=== PATIENT | female | born 1940 | race Caucasian/White ===

== ENCOUNTER 2021-01-18 01:25 | Emergency (ER) | payer OTHER, SELFPAY ==
--- NOTE | ~2021-01-18 | CT_ITS ---
EXAMINATION: CT abdomen pelvis w con EXAM DATE: 01/18/2021 03:24 INDICATION: Abdominal pain. TECHNIQUE: Spiral CT of the abdomen and pelvis was performed following intravenous injection of 100 m L Omnipaque 350. Axial, coronal and sagittal images of the abdomen and pelvis were reviewed. The do se-length product (DLP) for this examination was 582.84 mGy-cm. The exposure was tailored according to patient size (auto mA exposure control), and iterative reconstruction (ASIR) was used as additiona l dose reduction technique. There is no prior study for comparison. FINDINGS: The liver, spleen, adrenal glands and pancreas are unremarkable. Gallbladder is unremarkab le. No biliary obstruction. There is decreased attenuation to approximately 70% of the right renal volume centrally consistent with infarction which could be acute or subacute- there is no volume loss to indicate this is a chronic finding. Pelvis is poorly evaluated due to metallic artifact from ace ateral hip replacements limiting evaluation of uterus and bladder (patient could have had hysterectom y). There is no retroperitoneal or pelvic lymphadenopathy. There is extensive scattered arterial s clerotic disease. The appendix is normal. There is mild sigmoid colonic diverticulosis. There is no adjacent inflammat ory change to suggest diverticulitis. The stomach and small bowel are unremarkable. There is expecte d amount of colonic stool. No free intraperitoneal gas. The heart is normal in size. There are n o pericardial or pleural effusions. The lung bases are unremarkable. Mild to moderate thoracolumbar levoscoliosis. There are no osteoblastic or osteolytic lesions identified. 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 Reviewed, dictated and finalized at location A. IMPRESSION: Right kidney acute or subacute infarction involving majority of par enchyma.
[2021-01-18 01:29] VITALS: BP 141/105; PULSE 97; RESP 16; TEMP 36.3; O2SAT 97
[2021-01-18 01:47] LABS: Basophils Absolute Auto 0.1 K/mm3 (0.0-0.1); Basophils Percent Auto 0.5 % (0.2-1.2); Eosinophils Absolute Auto 0.2 K/mm3 (0-0.3); Eosinophils Percent Auto 2.1 % (0-4.4); Hematocrit 43.2 % (37.0-47.0); Hemoglobin 14.6 g/dL (12.0-15.0); Immature Granulocyte Absolute 0.05 K/mm3 (0.00-0.031); Immature Granulocyte Percent A 0.4 % (0-0.5); Lymphocytes Percent Auto 12.9 % (18.3-44.2); Mean Corpuscular HGB Conc 33.8 g/dl (32-36); Mean Corpuscular Hemoglobin 34.7 pg (26-34); Mean Corpuscular Volume 102.6 fl (80-100); Monocytes Absolute Auto 0.6 K/mm3 (0.1-0.6); Monocytes Percent Auto 5.4 % (2.6-8.5); Neutrophils Absolute Auto 9.1 K/mm3 (1.3-6.7); Neutrophils Percent Auto 78.7 % (45.5-73.1); Platelet Count Result 279 k/mm3 (150-375); Red Blood Count 4.21 M/mm3 (4.2-5.4); Red Cell Distribution Width 12.2 % (11.5-14.5); White Blood Count 11.6 K/mm3 (4.5-10.0)
[2021-01-18 02:22] LABS: Add Urine Microscopic? YES; Appearance Urine Clear (Clear); Bacteria Urine Trace /hpf; Bilirubin Urine Negative (Negative); Blood Urine Negative (Negative); Color Urine Straw (Yellow); Glucose Urine UA 2+ mg/dL (Negative); Ketones Urine Trace mg/dL (Negative); Leukocyte Esterase Ur 1+ LEU/UL (Negative); Mucus Urine Rare /lpf; Nitrate Urine Negative (Negative); Protein Urine 1+ mg/dL (Negative); Specific Grav Ur 1.014 (1.001-1.035); Urobilinogen Urine Negative mg/dL (<2.0)
[2021-01-18 02:37] LABS: Alanine Aminotransferase 18 U/L (4-35); Albumin Level 4.7 g/dL (3.5-5.1); Alkaline Phosphatase 86 U/L (38-126); Anion Gap 13 mmol/L (8-16); Aspartate Amino Transferase 20 U/L (14-36); Bilirubin,Total 0.4 mg/dL (0.2-1.3); Blood Urea Nitrogen 23 mg/dL (7-17); Calcium 9.6 mg/dL (8.4-10.2); Carbon Dioxide 22 mmol/L (22-30); Chloride 99 mmol/L (98-107); Estimated CRCL calculation 40 ml/min; Estimated Glomerular Filt Rate 53; Glucose 198 mg/dL (65-110); Lipase 196 U/L (23-300); Potassium 4.4 mmol/L (3.4-5.0); Sodium 134 mmol/L (137-145)
--- NOTE | 2021-01-18 02:45 | ED.ABDPAIN ---
HPI - Abdominal Pain General Chief Complaint: Abdominal Pain Stated Complaint: right flank pain Time Seen by Provider: 01/18/21 02:45 Source: patient Mode of arrival: ambulatory Limitations: no limitations History of Present Illness HPI narrative: Patient is an 80-year-old female complaining of right lower quadrant pain, 7 out of 10, sharp, nonradiating accompanied by nausea that started today. Patient denies any chest pain, shortness of breath, vomiting, diarrhea, fever, chills or urinary symptoms. Related Data Home Medications Medication Instructions Recorded Confirmed aspirin 325 mg tablet 325 mg PO DAILY 07/01/19 03/16/20 Allergies Allergy/AdvReac Type Severity Reaction Status Date / Time No Known Allergies Allergy Verified 01/18/21 03:05 Review of Systems Review of Systems: All systems reviewed & are unremarkable except as noted in HPI and below Constitutional: Constitutional: Denies body ache(s), Denies chills, Denies excessive sweating, Denies fatigue, Denies fever(s), Denies headache(s), Denies lethargy, Denies malaise, Denies weakness and Denies weight loss Eyes: Eyes: Denies blurry vision, Denies change in vision and Denies loss of vision ENT: Denies dizziness, Denies ear discharge, Denies headache(s), Denies lip swelling, Denies epistaxis, Denies nasal congestion, Denies neck pain, Denies throat swelling and Denies tongue swelling Cardiovascular: Cardiovascular: Denies chest pain, Denies chest pain at rest, Denies chest pain with activity, Denies diaphoresis, Denies rapid heart rate, Denies edema, Denies irregular heart rhythm, Denies lightheadedness, Denies palpitations, Denies dyspnea and Denies dyspnea on exertion Respiratory: Respiratory: Denies chest congestion, Denies cough, Denies hemoptysis, Denies dyspnea and Denies dyspnea on exertion Gastrointestinal: Gastrointestinal: Denies melena, Denies hematochezia, Denies diarrhea, Denies vomiting and Denies hematemesis Musculoskeletal: Musculoskeletal: Denies abnormal gait, Denies deformity, Denies joint swelling, Denies limited range of motion, Denies neck pain and Denies numbness Neurologic: Denies Abnormal speech present, Denies abnormal gait, Denies confusion, Denies dizziness, Denies headache(s), Denies focal weakness, Denies loss of vision, Denies numbness, Denies Other visual disturbances, Denies Sensory deficit (Neuro) and Denies weakness Psychiatric: Psychiatric: Denies confusion, Denies depression, Denies auditory hallucinations, Denies homicidal ideation and Denies suicidal ideation Endocrine: Endocrine: Denies cold intolerance, Denies excessive sweating, Denies fatigue, Denies heat intolerance and Denies palpitations Hematologic/Lymphatic: Hematologic/Lymphatic: Denies easy bleeding and Denies easy bruising Allergic/Immunologic: Allergic/Immunologic: Denies lip swelling, Denies throat swelling and Denies tongue swelling PMFSH Past Medical History Medical History Aortic valve insufficiency Dermatographism Dyslipidemia HTN (hypertension) Hypothyroidism Occlusion and stenosis of bilateral carotid arteries Osteoarthritis Type 2 diabetes mellitus with diabetic neuropathy, unspecified Social History Social History Social History: Years smoked: 58 Smoking status: Current every day smoker Tobacco type: cigarettes Second hand tobacco smoke exposure: Yes Alcohol intake: current Drinks per week: 4 Substance use: never Substance use type: does not use Gender identity (if verbalized by the patient): Female Exam Const: General: cooperative, healthy appearing, comfortable, no acute distress, well developed, alert and awake; No confusion Orientation/consciousness: oriented to person, oriented to place, oriented to time, patient oriented x3 and No confusion Limitations: no limitations HENMT: Head: normal
[2021-01-18 03:02] VITALS: BP 130/80; PULSE 89; RESP 18; O2SAT 94
[2021-01-18] MEDS: LACTATED RINGERS 1,000 ML 999 ML IV CONT (03:30)
[2021-01-18 04:33] VITALS: BP 126/74; PULSE 89; RESP 16; O2SAT 94
[2021-01-18 06:04] VITALS: BP 120/76; PULSE 81; RESP 16; O2SAT 91
== END 2021-01-18 06:19 | disposition home or self-care (01) ==
PROVIDERS: Emergency Provider Emergency Medicine; PCP Family Medicine
DX: N30.00 Acute cystitis without hematuria (principal); I10 Essential (primary) hypertension; E78.5 Hyperlipidemia, unspecified; E03.9 Hypothyroidism, unspecified; E11.9 Type 2 diabetes mellitus without complications; F17.210 Nicotine dependence, cigarettes, uncomplicated; Z79.82 Long term (current) use of aspirin
CPT/HCPCS: 36415; 74177; 80053; 81001; 83690; 85025; 96360; 96361; 99284; J7120; Q9967

== ENCOUNTER 2021-07-11 14:09 | Outpatient (CLI) | payer OTHER, SELFPAY ==
--- NOTE | ~2021-07-11 | US_ITS ---
EXAMINATION: US art doppler w press UE BI DATE: 07/11/2021 14:59 INDICATION: Essential/primary hypertension TECHNIQUE: Segmental pressures and plethysmographic and Doppler waveforms of the upper extremity ollie zach were obtained. COMPARISON: None. FINDINGS: Right and left brachial artery pressures of 160 mm Hg and 123 mm Hg, respectively, are discordant (no rmal difference <= 30 mmHg). The right finger:brachial systolic pressure ratio is 0.95 (normal > 0.8) . Arterial waveforms are biphasic with brisk systolic upstrokes (normal upstroke < 0.2 s) throughout the arteries of the right upper extremity. The left finger:brachial systolic pressure ratio is 0.94. Arterial waveforms are biphasic throughout. There is borderline delayed upstrokes at the left ulnar artery. IMPRESSION: 1. Discordant brachial artery pressures with the left brachial artery pressure significantly lower th an the right suggesting a stenosis proximal to the left brachial artery. There are however symmetric normal bilateral finger brachial artery indices. Reviewed, dictated and finalized at location A. R UP IMPRESSION: 1. Discordant brachial artery pressures with the left brachial artery pressure significantly lower than the right suggesting a stenosis proximal to the left b rachial artery. There are however symmetric normal bilateral finger brachial ar wang indices.
== END 2021-07-11 14:10 | disposition home or self-care (01) ==
LOC: ANHIMG 14:13
PROVIDERS: PCP Family Medicine; Visit Provider Physician Assistant
DX: I12.9 Hypertensive chronic kidney disease with stage 1 through stage 4 chronic kidney disease, or unspecified chronic kidney disease (principal); N18.9 Chronic kidney disease, unspecified; M79.89 Other specified soft tissue disorders; I77.1 Stricture of artery
CPT/HCPCS: 93923

== ENCOUNTER 2022-12-08 14:28 | Emergency (ER) | payer OTHER, SELFPAY ==
--- NOTE | ~2022-12-08 | CT_ITS ---
EXAMINATION: CT brain wo con DATE: 12/08/2022 16:47 INDICATION: Head injury. TECHNIQUE: Computed tomography (CT) of the head was performed without intravenous contrast. The mA wa s adjusted according to patient size. Iterative reconstruction technique was employed. The dose-lengt h product was 605.33 mGy-cm. COMPARISON: None FINDINGS: There are scattered areas of low attenuation in the cerebral white matter. There is no intr acranial hemorrhage, acute infarction, or abnormal intracranial mass lesion. The ventricles are armando l in size. There are likely changes of ocular lens replacement surgeries. There is mild mucosal thick ening in the ethmoid sinuses. The mastoid air cells are normal. There is a left frontal scalp lacerat ion. IMPRESSION: 1. Mild nonspecific cerebral white matter disease, which likely represents chronic small vessel ische naima disease. Reviewed, dictated and finalized at location E. IMPRESSION: 1. Mild nonspecific cerebral white matter disease, which likely represents lunchroom supervisor dakota small vessel ischemic disease.
--- NOTE | ~2022-12-08 | CT_ITS ---
EXAMINATION: CT facial & cervical spine wo DATE: 12/08/2022 16:52 INDICATION: Head injury. TECHNIQUE: Computed tomography (CT) of the maxillofacial region and cervical spine was performed with out intravenous contrast. Automated exposure control and iterative reconstruction technique were empl oyed. The dose-length product was 239.56 mGy-cm. COMPARISON: None FINDINGS: MAXILLOFACIAL CT: There is a left frontal scalp laceration. There are likely changes of ocular lens replacement surgeri es. There is rightward deviation of the nasal septum. No fracture. There is mild mucosal thickening i n the paranasal sinuses. CERVICAL SPINE CT: There is 6 degrees dextrocurvature of cervical spine. There is mild kyphosis of the inferior cervical spine. Vertebral body heights are normal. There is mildly decreased disc height at C3-C4 and C4-C5, moderately decreased disc height at C5-C6, and severely decreased disc height at C6-C7. The following disc levels are specifically discussed: C2-C3: There is no uncovertebral joint osteoarthritis. There is moderate right and severe left facet joint osteoarthritis. There is no neural foraminal stenosis. There is no central canal stenosis. C3-C4: There is mild bilateral uncovertebral joint osteoarthritis. There is severe bilateral facet nettie int osteoarthritis. There is mild right neural foraminal stenosis. There is no central canal stenosis . C4-C5: There is mild bilateral uncovertebral joint osteoarthritis. There is severe bilateral facet nettei int osteoarthritis. There is mild bilateral neural foraminal stenosis. There is no central canal sten osis. C5-C6: There is severe bilateral uncovertebral joint osteoarthritis. There is severe right and mild l eft facet joint osteoarthritis. There is moderate right and mild left neural foraminal stenosis. Ther e is mild central canal stenosis. C6-C7: There is severe bilateral uncovertebral joint osteoarthritis. There is moderate right and yudelka re left facet joint osteoarthritis. There is mild bilateral neural foraminal stenosis. There is mild central canal stenosis. C7-T1: There is no uncovertebral joint osteoarthritis. There is severe right and mild left facet join t osteoarthritis. There is mild right neural foraminal stenosis. There is no central canal stenosis. IMPRESSION: 1. No fracture. 2. Severe cervical spondylosis. Reviewed, dictated and finalized at location E.
[2022-12-08 14:30] VITALS: BP 158/52; PULSE 94; RESP 16; TEMP 36.4; O2SAT 94
[2022-12-08] MEDS: LIDOCAINE HCL 1% LOCAL INJ 10 ML VIAL (18:19)
--- NOTE | 2022-12-08 18:27 | ED.FALL ---
HPI - Fall General Chief Complaint: Fall Stated Complaint: fell Time Seen by Provider: 12/08/22 16:02 History of Present Illness HPI Narrative: 82-year-old female presented to the emergency department for evaluation after having a mechanical fall and injuring her face. Patient reports she tripped over a concrete structure while leaving her daughter's business when she fell forward struck her face. Patient denies loss conscious. Patient did receive a laceration above her left eye. Related Data Home Medications Medication Instructions Recorded Confirmed aspirin 325 mg tablet 325 mg PO DAILY 07/01/19 12/05/22 Allergies Allergy/AdvReac Type Severity Reaction Status Date / Time nitrofurantoin AdvReac Mild Diarrhea Verified 12/05/22 13:00 Review of Systems Review of Systems: All systems reviewed & are unremarkable except as noted in HPI and below PMFSH Past Medical History Medical History Aortic valve insufficiency Dermatographism Dyslipidemia HTN (hypertension) Hypothyroidism Occlusion and stenosis of bilateral carotid arteries Osteoarthritis Type 2 diabetes mellitus with diabetic neuropathy, unspecified Surgical History Surgical History History of CEA (carotid endarterectomy) left Social History Social History Social History: Years smoked: 58 Smoking status: Current every day smoker Tobacco type: cigarettes Second hand tobacco smoke exposure: Yes Alcohol intake: current Drinks per week: 4 Substance use: never Substance use type: does not use Living arrangements: with family Occupation/Education: retired Gender identity (if verbalized by the patient): Female Sexual Orientation (if Verbalized by the Patient): Straight or Heterosexual Exam Narrative: APPEARANCE: Well appearing, no pain, no distress, well-nourished. HEAD: normocephalic, atraumatic. EYES: PERRLA/EOMI, conjunctivae clear. NOSE: Normal no drainage EARS:TMS clear with good light reflex. THROAT: Pharynx clear, no exudate. NECK: Supple. No adenopathy, no masses. RESPIRATORY: Airway patent, respirations nonlabored. Clear to auscultation bilaterally, no rales, rhonchi, wheezing. CARDIOVASCULAR: Regular rate and rhythm without murmurs rubs or gallops. ABDOMINAL: Soft, nontender, nondistended, normal bowel sounds MUSCULOSKELETAL: Moves all extremities. Strength/ROM intact, No edema, No calf tenderness. NEURO: Alert. Cranial nerves II through XII intact. Good gait. Good coordination SKIN: Laceration and skin tear above left eye Course Course Emergency Course: 82-year-old female presented the ED for evaluation after having a ground-level fall resulting in a laceration and skin tear above her left eye. Laceration and skin tear were sutured as described in the procedure notes. Patient had negative head facial and cervical spine imaging. Patient was able to ambulate at her baseline. Patient and family were comfortable with the plan for discharge and close follow-up with the primary care physician and they were educated on wound care. All questions and concerns were addressed. Vital Signs Vital signs: Vital Signs Temperature 97.5 F L 12/08/22 14:30 Pulse Rate 94 12/08/22 14:30 Respiratory Rate 16 12/08/22 14:30 Blood Pressure 158/52 H 12/08/22 14:30 Pulse Oximetry 94 12/08/22 14:30 Oxygen Delivery Room Air 12/08/22 14:30 Temperature 97.5 F L 12/08/22 14:30 Pulse Rate 94 12/08/22 14:30 Respiratory Rate 16 12/08/22 14:30 Blood Pressure 158/52 H 12/08/22 14:30 Pulse Oximetry 94 12/08/22 14:30 Oxygen Delivery Room Air 12/08/22 14:30 Procedures Laceration Laceration 1: Date: 12/08/22 Time: 18:28 Site: face Side (If applicable): left Size (cm): 4 Description: tana
== END 2022-12-08 18:46 | disposition home or self-care (01) ==
PROVIDERS: Emergency Provider Emergency Medicine; PCP Family Medicine
DX: S01.81XA Laceration without foreign body of other part of head, initial encounter (principal); I10 Essential (primary) hypertension; E78.5 Hyperlipidemia, unspecified; E03.9 Hypothyroidism, unspecified; E11.9 Type 2 diabetes mellitus without complications; F17.210 Nicotine dependence, cigarettes, uncomplicated; W01.0XXA Fall on same level from slipping, tripping and stumbling without subsequent striking against object, initial encounter
CPT/HCPCS: 12013; 70450; 70486; 72125; 99284

== ENCOUNTER 2024-05-13 12:56 | Outpatient (CLI) | payer OTHER, SELFPAY ==
--- NOTE | ~2024-05-13 | XR_ITS ---
Left Shoulder Technique: AP and scapular Y views were obtained. Clinical History: Pain Findings: No fracture or dislocation is seen. Osseous alignment is anatomic. The glenohumeral and acr omioclavicular joint spaces are preserved. Soft tissues are unremarkable. Impression: Unremarkable left shoulder radiographs. Reviewed, dictated and finalized at [facility]. ANICAL HANDYMAN Impression: Unremarkable left shoulder radiographs.
== END 2024-05-13 12:57 | disposition home or self-care (01) ==
PROVIDERS: PCP Family Medicine; Visit Provider Physician Assistant
DX: M25.512 Pain in left shoulder (principal); W19.XXXA Unspecified fall, initial encounter
CPT/HCPCS: 73030

== ENCOUNTER 2024-08-17 09:46 | Outpatient (CLI) | payer OTHER, SELFPAY ==
--- NOTE | ~2024-08-17 | MR_ITS ---
EXAMINATION: MR shoulder LT wo con DATE: 08/17/2024 11:13 INDICATION: Left shoulder pain. TECHNIQUE: Magnetic resonance imaging (MRI) of the left shoulder was performed without intravenous co ntrast. Sequences included axial PD-weighted FS FSE, coronal oblique PD-weighted FS FSE and T2-weight ed FS FSE, and sagittal oblique T2-weighted FS FSE and T1-weighted FSE. COMPARISON: Left shoulder radiographs 05/13/2024 FINDINGS: Coracoacromial arch: The acromion undersurface is flat in morphology (type I). There is severe acromioclavicular joint ost eoarthritis. There is mild subacromial/subdeltoid bursitis. Rotator cuff: There is moderate supraspinatus and infraspinatus tendinopathy. Teres minor tendon is normal. There i s severe subscapularis tendinopathy. There is mild fatty atrophy of the rotator cuff muscle bellies. Biceps tendon and glenoid labrum: Biceps tendon is in bicipital groove. There is a partial tear of biceps tendon. There is degenerative tearing of the glenoid labrum. Fluid: There is a moderate-sized glenohumeral joint effusion. Bones/cartilage: There is shallow partial thickness cartilage loss of glenoid and humeral head. Tiny osteophytes are n oted. IMPRESSION: 1. Severe rotator cuff tendinopathy. 2. Mild glenohumeral joint chondrosis. 3. Severe acromioclavicular joint osteoarthritis. 4. Partial tear of biceps tendon. 5. Moderate-sized glenohumeral joint effusion. 6. Mild subacromial/subdeltoid bursitis. Reviewed, dictated and finalized at location A.
--- OUTSIDE RECORDS SUMMARY | 2024-08-17 09:49 | XMS_ITS | Referral Summary ---
Author Organization [facility] Address [address] [place] [address] Care Team Providers Care Chief Compliance Officer Name Role Phone Darren Hernández MD Primary Care Provider Allergies No known active allergies Medications glimepiride (AMARYL) 4 mg tabletIndicatio ns:type 2 diabetes mellitus Take 1 tablet (4 mg total) by mouth daily before breakfast Active metFORMIN (GLUCOPHAGE) 1,000 mg tabletIndicatio ns:type 2 diabetes mellitus Take 1 tablet (1,000 mg total) by mouth 2 (two) times a day with meals Active triamcinolone (KENALOG) 0.1 % cream Apply to affected area twice a day. 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 3 Active simvastatin (ZOCOR) 20 mg tabletIndicatio ns:hyperlipidem ia Take 1 tablet (20 mg total) by mouth nightly 3 Active HYDROcodone-devin taminophen (NORCO) 5-325 mg per tabletIndicatio ns:Pain Take 1 tablet by mouth every 6 (six) hours as needed for pain Active diphenhydrAMINE (BenadryL) 25 mg capsuleIndicati ons:leg irritation/itch ing Take 1 tablet/capsule (25 mg total) by mouth every 6 (six) hours as needed for itching Active cholecalciferol , vitamin D3, (VITAMIN D3 ORAL)Indication s:supplement Take 1 tablet by mouth daily Active aspirin 81 mg enteric coated tablet Take 1 tablet (81 mg total) by mouth daily Active amLODIPine (NORVASC) 5 mg tablet Take 1 tablet (5 mg total) by mouth daily 3 Active Contour Next Test Strips strip USE TO TEST DAILY 4 Active levothyroxine (SYNTHROID) 125 mcg tablet Take 1 tablet (125 mcg total) by mouth daily 4 Active Active Problems Problem Noted Date Diagnosed Date Encounter for surgical after care following surgery on the circulatory system 12/10/2023 Debility 10/13/2022 Assessment & Plan (10/13/2022 7:12 AM CDT): Patient was 2 person assist post op on 10/12 and before she was completely independent, did not use assistive devices or anything. She reported feeling dizzy and unsteady on her feet -PT/OT -gave fluids for orthostatics -change positions slowly Diabetes 10/11/2022 Assessment & Plan (10/13/2022 7:10 AM CDT): Hold home Amaryl and metformin. - SSI and accuchecks - Plan to resume home regimen at discharge. HTN (hypertension) 10/11/2022 Assessment & Plan (10/13/2022 7:10 AM CDT): Home regimen: amlodipine 10mg daily, lisinopril 40mg daily. -holding home lisinopril and amlodipine for borderline low pressures. 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 Upper extremity arterial studies showed proximal left subclavian artery severe stenosis or occlusion. CT with moderate stenosis. - No true symptoms of subclavian steal at this time. Will follow up as outpatient. - Right arm BP checks only Carotid arterial disease 08/28/2022 Assessment & Plan (10/13/2022 7:10 AM CDT): Patient was referred for unequal BP measurements (left lower than right side), left hand numbness, and weekly episodes of amaurosis. Carotid duplex scan shows occlusion of the right internal carotid artery and severe stenosis of the left internal carotid artery and Upper extremity arterial studies are suggestive of proximal left subclavian artery severe stenosis or occlusion. -OR 10/11 for right carotid endarterectomy with patch. - Goal SBP 110-140 - q4 VS and NV checks - Pain control. - tolerating diet, passed void trial 10/12 Resolved Problems Problem Noted Date Diagnosed Date Resolved Date Carotid artery calcification, left 10/11/2022 10/13/2022 Social History Tobacco Use Types Packs/Day Years Used Date Smoking Tobacco: Every Day Cigarettes Smokeless Tobacco: Never Tobacco Cessation:Ready to Q uit: Not Asked; Counseling Given: Not Answered AUDIT-C Answer Date Recorded Q1: How often do you have a drink containing alc ohol? Monthly or less 10/11/2022 Q2: How many drinks containi ng alcohol do you have on a typical day when you are drinking? 1 or 2 10/11/2022 Q3: How often do you have si x or more drinks on one occasion? Never 10/11/2022 Personal Safety Answer Date Recorded Have you ever been in or are you currently in a harmful physical or emotional relationship or is someone making you feel afraid or unsafe? 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 Gender Identity Not on file Sexual Orientation Not on file Last Filed Vital Signs Vital Sign Reading Time Taken Comments Blood Pressure 112/74 12/10/2023 10:19 AM CDT Pulse 79 12/10/2023 10:19 AM CDT Temperature 36.9 C (98.4 F) 10/14/2022 6:00 AM CDT Respiratory Rate 16 10/14/2022 7:42 AM CDT Oxygen Saturation 94% 12/10/2023 10:19 AM CDT Inhaled Oxygen Concentration - - Weight 64 kg (141 lb) 12/10/2023 10:19 AM CDT Height 157.5 cm (5' 2 ) 12/10/2023 10:19 AM CDT Body Mass Index 25.79 12/10/2023 10:19 AM CDT Plan of Treatment Not on file Medical Devices Implanted Type Area Toll Gate Keeper Device Identifier Shelf Expiration Date Model / Serial / Lot [employer]Spice Vascu-Guard 8x.8cm Peripheral Patch Vascular Bovine Pericardium [id number] - [id number] Implanted:Qty: 1 on 10/11/2022 by Darrius Faulkner MD at [facility] Other - see comments Left: Neck [employer] [id number] 07/14/2023 [id number] / / [id number] Explanted Type Area Toll Gate Keeper Device Identifier Shelf Expiration Date Model / Serial / Lot Integra IT [employer] Chantal [id number] Sundt 3-4mm 30cm Temporary External Loop Soft Conical Bulb [place] - [id number] Explanted:Qty: 1 on 10/11/2022 by Darrius Faulkner MD at [facility] Left: Neck [employer]a [employer] [id number] 03/27/2027 [id number] / / [id number] Procedures Procedure Name Priority Date/Time Associated Diagnosis Comments EGFR Timed 10/12/2022 7:21 AM CDT LIPID PANEL Timed 10/12/2022 7:21 AM CDT POCT HEMOGLOBIN A1C Routine 10/05/2022 1 1:15 AM CDT from Last 3 Months or Most Recently Relevant to Health Maintenance Results * (ABNORMAL) eGFR (10/12/2022 7:21 AM CDT) Pathologist [facility] eGFR 65(L) 90 - 130 mL/min/1. 73 m2 [facility] Comment: Interpretive Data Reference Interval Normal >/= 90 mL/min/1.73m2 Mildly decreased* 60 - 89 mL/min/1.73m2 Mildly to moderately decreased 45 - 59 mL/min/1.73m2 Moderately to severely decreased 30 - 44 mL/min/1.73m2 Severely decreased 15 - 29 mL/min/1.73m2 Kidney Failure < 15 mL/min/1.73m2 *Relative to young adult level Estimated glomerular filtration rate is determined by the 2020 CKD-EPI equation recommended by the National Kidney Foundation (A Unifying Approach to GFR Estimation: Recommendations of the NKF-ASK Task Force on Reassessing the Inclusion of Race in Diagnosing Kidney Disease, JASN 2020). The CKD-EPI equation should not be used for patients with unstable renal function and has not been validated in children and those over 70. Current interpretive data was last reviewed 2021. Blood 10/12/2022 7:21 AM CDT 10/12/2022 8:40 AM CDT Mery Tinoco NP LAB BLOOD ORDERABLES Final Result [facility] [place] [address] * (ABNORMAL) Lipid panel (10/12/2022 7:21 AM CDT) Cholesterol 95 30 - 199 mg/dL [facility] Comment: Interpretive Data Ages < or = 19 years Acceptable: <170 mg/dL Borderline high: 170-199 mg/dL High: >or= 200 mg/dL Ages > or = 20 years Desirable: <200 mg/dL Borderline high: 200-239 mg/dL High: >or= 240 mg/dL Literature References: 1. Expert Panel on Integrated Guidelines for Cardiovascular Health and Risk Reduction in Children and Adolescents. Pediatrics 2011;128:S213 2. NCEP Expert Panel. Circulation 2004;110:227 Current Interpretive Data was last revised on 2018. Triglycerides 114 <=149 mg/dL [facility] Comment: Interpretive Data Ages < or = 9 years Acceptable: <75 mg/dL Borderline high: 75-99 mg/dL High: >or= 100 mg/dL Ages 10 to 20 years Acceptable: <90 mg/dL Borderline high: 90-129 mg/dL High: >or= 130 mg/dL Ages > or = 20 years Desirable: <150 mg/dL Borderline high: 150-199 mg/dL High: 200-499 mg/dL Very high: >or= 499 mg/dL Literature References: 1. Expert Panel on Integrated Guidelines for Cardiovascular Health and Risk Reduction in Children and Adolescents. Pediatrics 2011;128:S213 2. NCEP Expert Panel. Circulation 2004;110:227 Current Interpretive Data was last revised on 2018. HDL 39(L) >=40 mg/dL [facility] Comment: Interpretive Data Ages < or = 19 years Acceptable: >45 mg/dL Borderline low: 40-45 mg/dL Low: <40 mg/dL Ages > or = 20 years Desirable: >or= 60 mg/dL Low: <40 mg/dL Literature References: 1. Expert Panel on Integrated Guidelines for Cardiovascular Health and Risk Reduction in Children and Adolescents. Pediatrics 2011;128:S213 2. NCEP Expert Panel. Circulation 2004;110:227 Current Interpretive Data was last revised on 2018. LDL, calculated 33 <=129 mg/dL [facility] Comment: Interpretive Data Ages < or = 19 years Acceptable: <110 mg/dL Borderline high: 110-129 mg/dL High: >or= 130 mg/dL Ages > or = 20 years Optimal: <100 mg/dL Near optimal: 100-129 mg/dL Borderline high: 130-159 mg/dL High: >160 mg/dL Literature References: 1. Expert Panel on Integrated Guidelines for Cardiovascular Health and Risk Reduction in Children and Adolescents. Pediatrics 2011;128:S213 2. NCEP Expert Panel. Circulation 2004;110:227 Current Interpretive Data was last revised on 2018. Non-HDL Cholesterol 56 mg/dL [facility] Comment: Interpretive Data Ages < or = 19 years Acceptable: <120 mg/dL Borderline high: 120-144 mg/dL High: >145 mg/dL Ages > or = 20 years When triglycerides are >200 mg/dL, Non-HDL cholesterol is a secondary target of therapy with treatment goals that are 30 mg/dL greater than the LDL cholesterol target. Literature References: 1. Expert Panel on Integrated Guidelines for Cardiovascular Health and Risk Reduction in Children and Adolescents. Pediatrics 2011;128:S213 2. NCEP Expert Panel. Circulation 2004;110:227 Current Interpretive Data was last revised on 2018. Chol/HDL ratio 2 [facility] Blood 10/12/2022 7:21 AM CDT 10/12/2022 8:40 AM CDT Darrius Faulkner MD LAB BLOOD ORDERABLES Alma l Result Performing Organization Address [facility] Co de Phone Number [facility] [place] [address] * (ABNORMAL) POCT hemoglobin A1c (10/05/2022 11:15 AM CDT) Hgb A1C, POC 6.1(H) 4.0 - 5.6 % [facility] Est Average Gluc POC 128 mg/dL [facility] Comment: The ADA recommends reporting an estimated Average Glucose (eAG) with all Hemoglobin A1c results using the equation derived from a study of 507 normal and diabetic adults. Minority populations were underrepresented and children were not included. (Diabetes Care 31:7629-9578, 2008). The eAG is not equivalent to a fasting glucose. Blood 10/05/2022 11:1 5 AM CDT 10/05/2022 11:15 AM CDT Darrius Faulkner MD POINT OF CARE TEST ORDERA BLES Final Result Performing Organization Address [facility] de Phone Number [facility] [place] [address] from Last 3 Months or Most Recently Relevant to Health Maintenance Insurance [facility] Advance Directives For more information, please contact: [phone] * Full Code (Latest Code Status on File) Date Activated Date Inactivated Comments 10/11/2022 5:52 PM 10/14/2022 3:24 PM Care Teams Chief Compliance Officer Relationship Specialty Start Date End Date Darren Hernández MD [address] [address] PCP - General 03/21/18
--- OUTSIDE RECORDS SUMMARY | 2024-08-17 09:49 | XMS_ITS | Continuity of Care Document ---
Author Organization Ophthal[facility] tanLocated within [facility] Address [id number] [place] [address] [address] [place] [address] Phone Care Team Providers Care Optometry Doctor Name Role Phone Sarah CRESPO, Ernesto Unavailable Unavaila ble Procedures Procedure Date CATARACT SURG W/IOL, 1 STAGE CATARACT SURG W/IOL, 1 STAGE OFFICE/OUTPATIENT VISIT, [facility] Advance Directives Directive Yes / No Effective Date File Name No Information Encounters Encounter Description Practice Location Reason(s) For Visit Diagnoses Date Provider Providers Copied on Encounter Ophthalmology [facility], [id number] [place] [address] [address], [place], [place], [id number], tel:[phone] [facility] [place] No Information 7 Sarah Orozco. [address], [address], [place], [place], [address], . tel:[phone] Referring Provider: Ernesto bartlett, [address], [place], [address] . tel:[phone] Ophthalmology [facility], [address] [place] [address] [address], [id number], tel:[phone] [facility] [place] No Information 7 Sarah Orozco. [address], [address], [place], [place], [address], . tel:[phone] Referring Provider: Ernesto bartlett, [address], [place], [address] . tel:[phone] OFFICE/OUTPAT IENT VISIT, NEW [facility], [address], [place], [place], [address], [place] tel:[phone] No Information 7 Sarah Orozco. [address], [place], [place], [address], [place]. tel:[phone] Referring Provider: Ernesto bartlett, [address], [place], [address] . tel:[phone] Family History Family Member Type Diagnosis Age At Onset No Information Payers Payer name Insurance type Covered constitution party ID Mariann serrano(s) [facility] [id number] Social History Type Description Quantity Date Captured [...]
--- OUTSIDE RECORDS SUMMARY | 2024-08-17 09:49 | XMS_ITS | Continuity of Care Document ---
Author Organization [facility] Address [address] [place] [address] [place] [address] Phone Care Team Providers Care Early Head Start Director Name Role Phone Kodi Bullard MD Unavailable Unavailable Procedures Procedure Date Office Consultation Visual Functional Status Assessed Advance Directives Directive Yes / No Effective Date File Name No Information Encounters Encounter Description Practice Location Reason(s) For Visit Diagnoses Date Provider Providers Copied on Encounter Office Consultation [facility], [address] [place] [address] [address], [place], [place], [address], tel:[phone] [facility] No Information [address] Aleah Mariee. [address], [place], [place], [address], [place]. tel:[phone] Referring Provider: Coby Lopez MD, [address], [place], [address]. tel:[phone] Family History Family Member Type Diagnosis Age At Onset No Information Payers Payer name Insurance type Covered constitution party ID Authoriza tion(s) [place] [id number] Social History Type Description Quantity Date Captured [...]
--- OUTSIDE RECORDS SUMMARY | 2024-08-17 09:49 | XMS_ITS | Clinical Summary ---
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 3 Active simvastatin (ZOCOR) 20 [...] Date Carotid artery calcification, left 10/11/2022 10/13/2022 Surgical History Surgery Date Site/Laterality Comments HYSTERECTOMY Age 32 HIP SURGERY Bilateral 2015 CAROTID ENDARTERECTOMY 10/11/2022 Left left carotid endaterectomy with bovine pericardial patch angioplasty Medical History Medical History Date Comments Smoking Diabetes mellitus (HCC) Hypertension Family History Medical History Relation Name Comments No Known Problems Father No Known Problems Mother Anesthesia problems Neg Hx Malig Hypertension Neg Hx Malig Hyperthermia Neg Hx Pseudochol deficiency Neg Hx Relation Name Status Comments Father Mother Social History Tobacco Use Types Packs/Day Years [...] on file 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 Gender Identity Not on file Sexual Orientation Not on file Obstetrics History Para Term AB IAB SAB Ectopic Multiple Livin g Live Births 4 4 4 Date Outcome GA Total Labor Labor/2nd/3rd Weight Sex Type Anes PTL Shelby A1 A5 Name Clin Term Term Term Term Last Filed Vital Signs Vital Sign Reading [...] 12/10/2023 10:19 AM CDT Plan of Treatment Health Maintenance Due Date Last Done Comments Albumin Creatinine Ratio, Urine 1940 Depression Screening 1940 Osteoporosis Screening-Bone Density Scan 1940 Dilated Eye Exam 1940 Foot Exam 1940 DTaP/Tdap/Td Vaccine (1 - Tdap) 1951 Hepatitis B Screening 1958 Zoster Vaccine (1 of 2) 1990 Well Visit 65+ 2005 Pneumococcal vaccine 65+ (2 of 2 - PPSV23) 09/07/2014 07/13/2014 Hemoglobin A1C 04/07/2023 10/05/2022 Lipid Panel 10/13/2023 10/12/2022 eGFR 10/13/2023 10/12/2022, 10/05/2022 Fall Risk Assessment 10/15/2023 10/14/2022 Influenza Vaccine (#1) 2024 8, 02/28/2017, 03/20/2016, Additional history exists Medical Devices Implanted Type Area Set Decorator Device Identifier Shelf Expiration Date Model / Serial / Lot [employer] Vascu-Guard 8x.8cm Peripheral Patch Vascular Bovine Pericardium [id number] - [id number] Implanted:Qty: 1 on 10/11/2022 by Darrius Faulkner MD at [facility] Other - see comments Left: Neck [employer] [id number] 07/14/2023 [id number]-0108N / / [id number] Explanted Type Area Set Decorator Device Identifier Shelf Expiration Date Model / Serial / Lot Integra [employer]oGen Chantal [id number] Sundt 3-4mm 30cm Temporary External Loop Soft Conical Bulb Spring - [id number] Explanted:Qty: 1 on 10/11/2022 by Darrius Faulkner MD at [facility] Left: Neck Integra [employer] Chantal [id number] 03/27/2027 [id number] / / [id number] Procedures Procedure Name Priority Date/Time Associated Diagnosis Comments EGFR Timed 10/12/2022 7:21 AM CDT LIPID PANEL Timed 10/12/2022 7:21 AM CDT POCT HEMOGLOBIN A1C Routine 10/05/2022 1 1:15 AM CDT from Last 3 Months or Most Recently Relevant to Health Maintenance Results * (ABNORMAL) eGFR (10/12/2022 7:21 AM CDT) eGFR 65(L) 90 - 130 mL/min/1. 73 m2 [facility] Comment: Interpretive Data Reference Interval Normal [...] of Race in Diagnosing Kidney Disease, JASN 202). The CKD-EPI equation should not be used for patients with unstable renal function and has not been validated in children and those over 70. Current interpretive data was last reviewed 2021. Blood 10/12/2022 7:21 AM CDT 10/12/2022 8:40 AM CDT Mery Tinoco EATING DISORDER PSYCHOLOGIST LAB BLOOD ORDERABLES Final Result [facility] [place] [address] * (ABNORMAL) Lipid panel (10/12/2022 7:21 AM CDT) Cholesterol 95 30 - 199 mg/dL [facility] Comment: Interpretive Data Ages [...] revised on 2018. HDL 39(L) >=40 mg/dL [facility] Comment: Interpretive Data Ages [...] on 2018. LDL, calculated 33 <=129 mg/dL [facility] Comment: Interpretive Data Ages < or [...] revised on 2018. Non-HDL Cholesterol 56 mg/dL [facility] Comment: Interpretive Data Ages < or [...] last revised on 2018. Chol/HDL ratio 2 [facility] Blood 10/12/2022 7:21 AM CDT 10/12/2022 8:40 AM CDT us Darrius Faulkner MD LAB BLOOD ORDERABLES Alma fajardo Result [facility] [place] [address] * (ABNORMAL) POCT hemoglobin A1c (10/05/2022 11:15 AM CDT) Hgb A1C, POC 6.1(H) 4.0 - 5.6 % [facility] Est Average Gluc POC 128 mg/dL [facility] Comment: The ADA recommends reporting an estimated Average Glucose (eAG) with all Hemoglobin A1c results using the equation derived from a study of 507 normal and diabetic adults. Minority populations were underrepresented and children were not included. (Diabetes Care 31:1712-9527, 2008). The eAG is not equivalent to a fasting glucose. Blood 10/05/2022 11:1 5 AM CDT 10/05/2022 11:15 AM CDT us Darrius Faulkner MD POINT OF CARE TEST ORDERA BLES Final Result [facility] [place] [address] from Last 3 Months or Most Recently Relevant to Health Maintenance Insurance [facility] Advance Directives For more information, please contact: [phone] * Full Code (Latest Code Status on File) Date Activated Date Inactivated Comments 10/11/2022 5:52 PM 10/14/2022 3:24 PM Care Teams Roller Pneumatic Relationship Specialty Start Date End Date Darren Hernández MD [address] [facility] [address] [place] [address] PCP - General 03/21/18
== END 2024-08-17 09:47 | disposition home or self-care (01) ==
PROVIDERS: PCP Family Medicine; Visit Provider Physician Assistant
DX: R91.1 Solitary pulmonary nodule (principal); R29.898 Other symptoms and signs involving the musculoskeletal system; M19.012 Primary osteoarthritis, left shoulder; M25.412 Effusion, left shoulder; M75.52 Bursitis of left shoulder
CPT/HCPCS: 73221

== ENCOUNTER 2024-08-19 14:21 | Outpatient (CLI) | payer OTHER, SELFPAY ==
--- NOTE | ~2024-08-19 | XR_ITS ---
EXAMINATION: XR chest 2V Exam Date/Time: 08/19/2024 14:35 CDT HISTORY: R05.9 - Cough, unspecified Comparison: None. RESULT: Lines, tubes, and devices: None. Lungs and pleura: Millimeter left midlung pulmonary nodule. Multiple additional somewhat nodular juan earing opacities are noted bilaterally. Cardiomediastinal silhouette: Stable. Other: No acute osseous or upper abdominal finding. IMPRESSION: Left lung pulmonary nodule. Multiple additional opacities may represent nodules versus artifact. Brenton mmend low-dose noncontrast CT of the chest for further evaluation. Reviewed, dictated and finalized at location K. IMPRESSION: Left lung pulmonary nodule. Multiple additional opacities may represent nodules versus artifact. Recommend low-dose noncontrast CT of the chest for further ev aluation.
--- OUTSIDE RECORDS SUMMARY | 2024-08-19 16:50 | XMS_ITS | Clinical Summary ---
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 Gender Identity Not on file Sexual Orientation [...] history exists Medical Devices Implanted Type Area Creative Manager Device Identifier Shelf Expiration Date Model / Serial / Lot Ometrics Vascu-Guard 8x.8cm Peripheral Patch Vascular Bovine Pericardium Vg-0108n - [id number] Implanted:Qty: 1 on 10/11/2022 by Darrius Faulkner MD at [facility] Other - see comments Left: Neck Ometrics [id number] 07/14/2023 VG-0108N / / [id number] Explanted Type Area Creative Manager Device Identifier Shelf Expiration Date Model / Serial / Lot Integra [employer]oco [employer] Chantal [id number] Sundt 3-4mm 30cm Temporary External Loop Soft Conical Bulb Spring - [id number] Explanted:Qty: 1 on 10/11/2022 by Darrius Faulkner MD at [facility] Left: Neck Integra [employer] Chantal [id number] 03/27/2027 [id number] / / [id number] Procedures Procedure Name Priority Date/Time Associated Diagnosis Comments EGFR Timed 10/12/2022 7:21 AM CDT LIPID PANEL Timed 10/12/2022 7:21 AM CDT POCT HEMOGLOBIN A1C Routine 10/05/2022 1 1:15 AM CDT from Last 3 Months or Most Recently Relevant to Health Maintenance Results * (ABNORMAL) eGFR (10/12/2022 7:21 AM CDT) eGFR 65(L) 90 - 130 mL/min/1. 73 m2 [facility] Comment: Interpretive Data Reference Interval Normal [...] CDT 10/12/2022 8:40 AM CDT Mery Tinoco PERSONAL PROPERTY APPRAISER LAB BLOOD ORDERABLES Final Result [facility] One [facility] [place] [address] * (ABNORMAL) Lipid panel (10/12/2022 7:21 AM [...] 2018. LDL, calculated 33 <=129 mg/dL [facility] Comment: Interpretive Data Ages < or [...] revised on 2018. Non-HDL Cholesterol 56 mg/dL [facility] Comment: Interpretive Data Ages < or [...] last revised on 2018. Chol/HDL ratio [address] [facility] [address] Blood 10/12/2022 7:21 AM CDT 10/12/2022 8:40 AM CDT us Darrius Faulkner MD LAB BLOOD ORDERABLES Alma fajardo Result [facility] One [facility] [place] [address] * (ABNORMAL) POCT hemoglobin A1c (10/05/2022 11:15 AM CDT) Hgb A1C, POC 6.1(H) 4.0 - 5.6 % [facility] Est Average Gluc POC 128 mg/dL [facility] Comment: The ADA recommends reporting an estimated Average Glucose (eAG) with all Hemoglobin A1c results using the equation derived from a study of 507 normal and diabetic adults. Minority populations were underrepresented and children were not included. (Diabetes Care 31:7752-4904, 2008). The eAG is not equivalent to a fasting glucose. Blood 10/05/2022 11:1 5 AM CDT 10/05/2022 11:15 AM CDT us Darrius Faulkner MD POINT OF CARE TEST ORDERA BLES Final Result [facility] One [facility] [place] [address] from Last 3 Months or Most Recently Relevant to Health Maintenance Insurance [facility] Advance Directives For more information, please contact: [phone] * Full Code (Latest Code Status on File) Date Activated Date Inactivated Comments 10/11/2022 5:52 PM 10/14/2022 3:24 PM Care Teams Senior Business Intelligence Analyst Relationship Specialty Start Date End Date Darren Hernández MD [address] [facility] [address] [place] [address] PCP - General 03/21/18
--- OUTSIDE RECORDS SUMMARY | 2024-08-19 16:50 | XMS_ITS | Referral Summary ---
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 Other - see comments Left: Neck Bimb[employer] [id number] 07/14/2023 VG-0108N / / [id number]- [id number] Explanted Type Area Milk Tanker Driver Device Identifier Shelf Expiration Date Model / Serial / Lot Integra Vaxartciences Chantal [id number] Sundt 3-4mm 30cm Temporary External Loop Soft Conical Bulb [place] - [id number] Explanted:Qty: 1 on 10/11/2022 by Darrius Faulkner MD at [facility] Left: Neck [employer]rit[employer] [id number] 03/27/2027 [id number] / / [id number] Procedures Procedure Name Priority Date/Time Associated Diagnosis Comments EGFR Timed 10/12/2022 7:21 AM CDT LIPID PANEL Timed 10/12/2022 7:21 AM CDT POCT HEMOGLOBIN A1C Routine 10/05/2022 1 1:15 AM CDT from Last 3 Months or Most Recently Relevant to Health Maintenance Results * (ABNORMAL) eGFR (10/12/2022 7:21 AM CDT) Pathologist [facility] eGFR 65(L) 90 - 130 mL/min/1. 73 m2 [facility] Comment: Interpretive Data Reference Interval Normal [...] BLOOD ORDERABLES Final Result [facility] One [facility] Department [place] [address] * (ABNORMAL) Lipid panel (10/12/2022 7:21 AM CDT) Cholesterol 95 30 - 199 mg/dL [facility] Comment: Interpretive Data Ages < or [...] revised on 2018. HDL 39(L) >=40 mg/dL [facility] Comment: Interpretive Data Ages < or [...] on 2018. LDL, calculated 33 <=129 mg/dL [facility] Comment: Interpretive Data Ages < or [...] revised on 2018. Non-HDL Cholesterol 56 mg/dL [facility] Comment: Interpretive Data Ages < or [...] last revised on 2018. Chol/HDL ratio 2 [facility] Blood 10/12/2022 7:21 AM CDT 10/12/2022 8:40 AM CDT Darrius Faulkner MD LAB BLOOD ORDERABLES Alma l Result Performing Organization Address [facility] Co de Phone Number [facility] [place] [address] * (ABNORMAL) POCT hemoglobin A1c (10/05/2022 11:15 AM CDT) Hgb A1C, POC 6.1(H) 4.0 - 5.6 % [facility] Est Average Gluc POC 128 mg/dL [facility] Comment: The ADA recommends reporting an estimated Average Glucose (eAG) with all Hemoglobin A1c results using the equation derived from a study of 507 normal and diabetic adults. Minority populations were underrepresented and children were not included. (Diabetes Care 31:1025-6631, 2008). The eAG is not equivalent to a fasting glucose. Blood 10/05/2022 11:1 5 AM CDT 10/05/2022 11:15 AM CDT Darrius Faulkner MD POINT OF CARE TEST ORDERA BLES Final Result Performing Organization Address [facility] de Phone Number [facility] Department [place] [address] from Last 3 Months or Most Recently Relevant to Health Maintenance Insurance [facility] Advance Directives For more information, please contact: [phone] * Full Code (Latest Code Status on File) Date Activated Date Inactivated Comments 10/11/2022 5:52 PM 10/14/2022 3:24 PM Care Teams Board Handler Relationship Specialty Start Date End Date Darren Hernández MD [address] [address] PCP - General 03/21/18
== END 2024-08-19 14:22 | disposition home or self-care (01) ==
PROVIDERS: PCP Family Medicine; Visit Provider Physician Assistant
DX: R05.9 Cough, unspecified (principal); R06.2 Wheezing; R91.1 Solitary pulmonary nodule
CPT/HCPCS: 71046

== ENCOUNTER 2024-10-03 14:15 | Outpatient (CLI) | payer OTHER, SELFPAY ==
--- NOTE | ~2024-10-03 | CT_ITS ---
CT Scan of the Chest without Contrast: Clinical Indication: Pulmonary nodules Technique: Contiguous sections were acquired throughout the chest without intravenous contrast. Dose reduction technique was used on this scan by utilizing automated exposure control and iterative recon struction technique. The dose-length product (DLP) was 135.11 mGy-cm. Findings: There is no evidence of any significant mediastinal, hilar or axillary lymphadenopathy. There are ext ensive atherosclerotic calcifications of the aorta and coronary arteries. There is no evidence of pleural or pericardial effusion. 8 mm noncalcified left lower lobe pulmonary nodule present (axial image 59). Images through the upper abdomen reveal no abnormalities. Mild compression deformity of T5 noted at the superior endplate. Impression: Lung RADS 4A: Suspicious. 3 month follow-up CT recommended. Reviewed, dictated and finalized at [facility]. Impression: Lung RADS 4A: Suspicious. 3 month follow-up CT recommended.
--- OUTSIDE RECORDS SUMMARY | 2024-10-03 14:19 | XMS_ITS | Continuity of Care Document ---
Author Organization [facility] Address [address] [place] [address] [place] [address] Phone Care Team Providers Care Retail Sales Professional Name Role Phone Kodi Bullard MD Unavailable Unavailable Procedures Procedure Date Office Consultation Visual Functional Status Assessed Advance Directives Directive Yes / No Effective Date File Name No Information Encounters Encounter Description Practice Location Reason(s) For Visit Diagnoses Date Provider Providers Copied on Encounter Office Consultation [facility], [address] [address] [address], [place], [place], [address], tel:[phone] [facility] No Information [address] [facility] [address], [place], [place], [address], [place]. tel:[phone] Referring Provider: Coby Lopez MD, [address], [place], [address]. tel:[phone] Family History Family Member Type Diagnosis Age At Onset No Information Payers Payer name Insurance type Covered alliance party ID Authoriza tion(s) [place] [id number] Social History Type Description Quantity Date Captured [...]
--- OUTSIDE RECORDS SUMMARY | 2024-10-03 14:19 | XMS_ITS | Clinical Summary ---
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 Gender Identity Not on file Sexual Orientation [...] history exists Medical Devices Implanted Type Area Flat Bed Operator Device Identifier Shelf Expiration Date Model / Serial / Lot Jibo Vascu-Guard 8x.8cm Peripheral Patch Vascular Bovine Pericardium Vg-0108n - [id number] Implanted:Qty: 1 on 10/11/2022 by Darrius Faulkner MD at [facility] Other - see comments Left: Neck Jibo [id number] 07/14/2023 VG-0108N / / [id number]- [id number] Explanted Type Area Flat Bed Operator Device Identifier Shelf Expiration Date Model / Serial / Lot Integra Brainscape Chantal [id number] Sundt 3-4mm 30cm Temporary External Loop Soft Conical Bulb [place] - [id number] Explanted:Qty: 1 on 10/11/2022 by Darrius Faulkner MD at [facility] Left: Neck Integra Brainscape Chantal [id number] 03/27/2027 [id number] / / [id number] Procedures Procedure Name Priority Date/Time Associated Diagnosis Comments EGFR Timed 10/12/2022 7:21 AM CDT LIPID PANEL Timed 10/12/2022 7:21 AM CDT POCT HEMOGLOBIN A1C Routine 10/05/2022 1 1:15 AM CDT from Last 3 Months or Most Recently Relevant to Health Maintenance Results * (ABNORMAL) eGFR (10/12/2022 7:21 AM CDT) eGFR 65(L) 90 - 130 mL/min/1. 73 m2 [facility] Comment: Interpretive Data Reference Interval Normal >/= [...] CDT 10/12/2022 8:40 AM CDT Mery Tinoco WAREHOUSE RECEIVING SUPERVISOR LAB BLOOD ORDERABLES Final Result [facility] One [facility] Department [place] [address] * (ABNORMAL) Lipid panel (10/12/2022 7:21 AM [...] 2018. LDL, calculated 33 <=129 mg/dL [facility] Comment: Interpretive Data Ages < or [...] revised on 2018. Non-HDL Cholesterol 56 mg/dL [facility] Comment: Interpretive Data Ages < or [...] last revised on 2018. Chol/HDL ratio 2 [facility] Blood 10/12/2022 7:21 AM CDT 10/12/2022 8:40 AM CDT us Darrius Faulkner MD LAB BLOOD ORDERABLES Alma fajardo Result [facility] One [facility] Department [place] [address] * (ABNORMAL) POCT hemoglobin A1c (10/05/2022 11:15 AM CDT) Hgb A1C, POC 6.1(H) 4.0 - 5.6 % [facility] Est Average Gluc POC 128 mg/dL [facility] Comment: The ADA recommends reporting an estimated Average Glucose (eAG) with all Hemoglobin A1c results using the equation derived from a study of 507 normal and diabetic adults. Minority populations were underrepresented and children were not included. (Diabetes Care 31:5569-2518, 2008). The eAG is not equivalent to a fasting glucose. Blood 10/05/2022 11:1 5 AM CDT 10/05/2022 11:15 AM CDT us Darrius Faulkner MD POINT OF CARE TEST ORDERA BLES Final Result [facility] One [facility] Department [place] [address] from Last 3 Months or Most Recently Relevant to Health Maintenance Insurance [facility] Advance Directives For more information, please contact: [phone] * Full Code (Latest Code Status on File) Date Activated Date Inactivated Comments 10/11/2022 5:52 PM 10/14/2022 3:24 PM Care Teams Carpet Yarn Winder Operator Relationship Specialty Start Date End Date Darren Hernández MD [address] [facility] [address] [place] [address] PCP - General 03/21/18
--- OUTSIDE RECORDS SUMMARY | 2024-10-03 14:19 | XMS_ITS | Referral Summary ---
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 Gender Identity Not on file Sexual Orientation [...] on file Medical Devices Implanted Type Area Continuous Miner Operator Helper Device Identifier Shelf Expiration Date Model / Serial / Lot Targazyme Vascu-Guard 8x.8cm Peripheral Patch Vascular Bovine Pericardium Vg-0108n - [id number] Implanted:Qty: 1 on 10/11/2022 by Darrius Faulkner MD at [facility] Other - see comments Left: Neck Targazyme [id number] 07/14/2023 VG-0108N / / [id number]- [id number] Explanted Type Area Continuous Miner Operator Helper Device Identifier Shelf Expiration Date Model / Serial / Lot Integra Naartjieciences Chantal [id number] Sundt 3-4mm 30cm Temporary External Loop Soft Conical Bulb [place] - [id number] Explanted:Qty: 1 on 10/11/2022 by Darrius Faulkner MD at [facility] Left: Neck [employer] [id number] 03/27/2027 [id number] / / [id number] Procedures Procedure Name Priority Date/Time Associated Diagnosis Comments EGFR Timed 10/12/2022 7:21 AM CDT LIPID PANEL Timed 10/12/2022 7:21 AM CDT POCT HEMOGLOBIN A1C Routine 10/05/2022 1 1:15 AM CDT from Last 3 Months or Most Recently Relevant to Health Maintenance Results * (ABNORMAL) eGFR (10/12/2022 7:21 AM CDT) Pathologist [facility] eGFR 65(L) 90 - 130 mL/min/1. 73 m2 [facility] Comment: Interpretive Data Reference Interval Normal >/= [...] Final Result [facility] One [facility] Department [place] [address] * (ABNORMAL) Lipid panel (10/12/2022 7:21 AM CDT) Cholesterol 95 30 - 199 mg/dL [facility] Comment: Interpretive Data Ages < or = [...] revised on 2018. HDL 39(L) >=40 mg/dL [facility] Comment: Interpretive Data Ages < or = [...] on 2018. LDL, calculated 33 <=129 mg/dL [facility] Comment: Interpretive Data Ages < or = [...] revised on 2018. Non-HDL Cholesterol 56 mg/dL [facility] Comment: Interpretive Data Ages < or = [...] last revised on 2018. Chol/HDL ratio 2 [facility] Blood 10/12/2022 7:21 AM CDT 10/12/2022 8:40 AM CDT Darrius Faulkner MD LAB BLOOD ORDERABLES Alma l Result Performing Organization Address [facility] Co de Phone Number [facility] Department [place] [address] * (ABNORMAL) POCT hemoglobin A1c (10/05/2022 11:15 AM CDT) Hgb A1C, POC 6.1(H) 4.0 - 5.6 % [facility] Est Average Gluc POC 128 mg/dL [facility] Comment: The ADA recommends reporting an estimated Average Glucose (eAG) with all Hemoglobin A1c results using the equation derived from a study of 507 normal and diabetic adults. Minority populations were underrepresented and children were not included. (Diabetes Care 31:3378-4157, 2008). The eAG is not equivalent to a fasting glucose. Blood 10/05/2022 11:1 5 AM CDT 10/05/2022 11:15 AM CDT Darrius Faulkner MD POINT OF CARE TEST ORDERA BLES Final Result Performing Organization Address [facility] de Phone Number [facility] Department [place] [address] from Last 3 Months or Most Recently Relevant to Health Maintenance Insurance [facility] Advance Directives For more information, please contact: [phone] * Full Code (Latest Code Status on File) Date Activated Date Inactivated Comments 10/11/2022 5:52 PM 10/14/2022 3:24 PM Care Teams Strand And Binder Controller Relationship Specialty Start Date End Date Darren Hernández MD [address] [address] PCP - General 03/21/18
--- OUTSIDE RECORDS SUMMARY | 2024-10-03 14:19 | XMS_ITS | Continuity of Care Document ---
Author Organization [facility] Address [address] [place] [address] [address] [place] [address] Phone Care Team Providers Care Ecg Technician Name Role Phone Sarah CRESPO, Ernesto Unavailable Unavaila ble Procedures Procedure Date CATARACT SURG W/IOL, 1 STAGE CATARACT SURG W/IOL, 1 STAGE OFFICE/OUTPATIENT VISIT, [facility] Advance Directives Directive Yes / No Effective Date File Name No Information Encounters Encounter Description Practice Location Reason(s) For Visit Diagnoses Date Provider Providers Copied on Encounter Ophthalmology [facility], [id number] [place] [address] [address], [place], [place], [address], tel:[phone] [facility] No Information 7 Sarah Orozco. [address], [address], [place], [place], [address], . tel:[phone] Referring Provider: Ernesto bartlett, [address], [place], [address] . tel:[phone] Ophthalmology [facility], [address] [place] [address], [place], [address], tel:[phone] [facility] No Information 7 Sarah Orozco. [address], [address], [place], [place], [address], . tel:[phone] Referring Provider: Ernesto bartlett, [address], [place], [address] . tel:[phone] OFFICE/OUTPAT IENT VISIT, NEW [facility], [address], [place], [place], [address], [place] tel:[phone] [facility] No Information 7 Sarah Orozco. [address], [place], [place], [address], [place]. tel:[phone] Referring Provider: Ernesto bartlett, [address], [place], [address] . tel:[phone] Family History Family Member Type Diagnosis Age At Onset No Information Payers Payer name Insurance type Covered alliance party ID Mariann serrano(s) [place] [id number] Social History Type Description Quantity Date Captured [...]
== END 2024-10-03 14:16 | disposition home or self-care (01) ==
PROVIDERS: PCP Family Medicine; Visit Provider Physician Assistant
DX: R91.8 Other nonspecific abnormal finding of lung field (principal)
CPT/HCPCS: 71250

== ENCOUNTER 2025-03-15 10:17 | Emergency (ER) | payer OTHER, SELFPAY ==
--- OUTSIDE RECORDS SUMMARY | 2007-05-01 09:12 | XMS_ITS | Continuity of Care Document ---
Author Organization [facility] Address [address] [place] [address] [place] [address] Phone Care Team Providers Care Disassembler Product Name Role Phone Kodi Bullard MD Unavailable Unavailable Procedures Procedure Date Office Consultation Visual Functional Status Assessed Advance Directives Directive Yes / No Effective Date File Name No Information Encounters Encounter Description Practice Location Reason(s) For Visit Diagnoses Date Provider Providers Copied on Encounter Office Consultation [facility], [address] [place] [address] [address], [place], [place], [id number], tel:[phone] [facility] No Information [address]. [address] [facility] [address], [place], [place], [address], [place]. tel:[phone] Referring Provider: Coby Lopez MD, [address], [place], [address]. tel:[phone] Family History Family Member Type Diagnosis Age At Onset No Information Payers Payer name Insurance type Covered libertarian ID Authoriza tion(s) [place] [id number] Social History Type Description Quantity Date Captured Comments Sex Female Smoking Status No Information Chief Complaint And Reason For Visit No Information Reason For Referral Reason For Referral No Information History Of Present Illness Encounter Date Complaint History Of Prese nt Illness No Information Functional Status Date Functional Assessmen t No Information Instructions Date Instruction Additional Infor mation No Information Assessments Type Assessment Date No Information Patient Care Teams Name Effective Dates (start - stop) Status Members No Information
--- OUTSIDE RECORDS SUMMARY | 2016-10-02 07:30 | XMS_ITS | Continuity of Care Document ---
Author Organization [facility] Address [id number] [place] [address] [address] [place] [address] Phone Care Team Providers Care Director Of Convention Services Name Role Phone Sarah CRESPO, Ernesto Unavailable Unavaila ble Procedures Procedure Date CATARACT SURG W/IOL, 1 STAGE CATARACT SURG W/IOL, 1 STAGE OFFICE/OUTPATIENT VISIT, [facility] Advance Directives Directive Yes / No Effective Date File Name No Information Encounters Encounter Description Practice Location Reason(s) For Visit Diagnoses Date Provider Providers Copied on Encounter Ophthalmology [facility], [address] [place] [address] [address], [place], [place], [address], tel:[phone] [facility] No Information 7 Sarah Orozco. [address], [address], [place], [place], [address], . tel:[phone] Referring Provider: Ernesto bartlett, [address], [place], [address] . tel:[phone] Op[facility], [address] [place] [address], [place], [address], tel:[phone] [facility] No Information 7 Sarah Orozco. [address], [address], [place], [place], [address], . tel:[phone] Referring Provider: Ernesto bartlett, [address], [place], [address] . tel:[phone] OFFICE/OUTPAT IENT VISIT, NEW [facility], [address], [place], [place], [address], [place] tel:[phone] No Information 7 Sarah Orozco. [address], [address], [place], [place], [address], [place]. tel:[phone] Referring Provider: Ernesto bartlett, [address], [place], [address] . tel:[phone] Family History Family Member Type Diagnosis Age At Onset No Information Payers Payer name Insurance type Covered green party ID Mariann serrano(s) [place] [id number] Social History Type Description Quantity Date Captured [...]
--- NOTE | ~2025-03-15 | XR_ITS ---
Examination: XR hip RT 2V w AP pelvis Clinical History: trauma FALL YESTERDAY WITH RT HIP BUTTOCK PAIN Comparison: None Technique: 2 views right hip with AP pelvis Findings/impression: 1. Right hip arthroplasty intact without associated fracture or dislocation. 2. No pelvic fracture identified. 3. Single view left hip arthroplasty unremarkable. Reviewed, dictated and finalized at location R.
--- NOTE | ~2025-03-15 | XR_ITS ---
Examination: XR wrist RT min 3V Clinical History: FALL GLF AT HOME OBVI DEFORMITY SWELLING Comparison: None Technique: 4 views right wrist Findings/impression: 1. Impacted fracture distal radius. 2. No additional fracture identified. 3. No dislocation. Reviewed, dictated and finalized at location R.
[2025-03-15 10:22] VITALS: BP 105/64; PULSE 78; RESP 17; TEMP 36.3; O2SAT 95
--- NOTE | 2025-03-15 11:58 | ED.GENADULT ---
HPI - General Adult General Chief complaint: Extremity Injury, Upper Stated complaint: right wrist injury Time Seen by Provider: 03/15/25 11:20 History of Present Illness HPI narrative: [age] old female presenting to the emergency department for evaluation after having a ground level fall. Patient was walking and stumbled and injured her right wrist. Patient states she also injured her right hip. Patient was able to ambulate without issues prior to arrival to the emergency department. Patient denies striking her head denies any loss of consciousness. Related Data Home Medications ?Medication ?Instructions ?Recorded ?Confirmed ?Last Taken ?Type aspirin 325 mg tablet 325 mg PO DAILY 07/01/19 03/05/25 Unknown History Allergies Allergy/AdvReac Type Severity Reaction Status Date / Time nitrofurantoin AdvReac Mild Diarrhea Verified 03/05/25 13:08 Review of Systems Review of Systems: All systems reviewed & are unremarkable except as noted in HPI and below PMFSH Past Medical History Medical History Osteoarthritis Dermatographism Aortic valve insufficiency Dyslipidemia Hypothyroidism HTN (hypertension) Occlusion and stenosis of bilateral carotid arteries Type 2 diabetes mellitus with diabetic neuropathy, unspecified Surgical History Surgical History History of CEA (carotid endarterectomy) left Social History Social History Social History: Smoking packs per day: 0.5 Smoking cigarettes per day: 10.0 Years smoked: 58 Smoking pack-years: 29.00 Smoking status: Current every day smoker Tobacco type: cigarettes Second hand tobacco smoke exposure: Yes Alcohol intake: current Drinks per week: 4 Substance use: never Substance use type: does not use Do You Feel Safe in your Home?: Yes Lack of Transportation: No Lack of Food: Never True Current Housing: I Have Housing Concerned About Future Housing: No Difficulty Paying Gas/Electric Bills: No Difficulty Paying for Meds: No Currently Unemployed: YES Education: Don't Know Difficulty w/ Childcare or Family Care: No Living arrangements: with family Occupation/Education: retired Gender identity (if verbalized by the patient): Female Sexual Orientation (if Verbalized by the Patient): Straight or Heterosexual Exam Narrative: APPEARANCE: Well appearing, no pain, no distress, well-nourished. HEAD: normocephalic, atraumatic. EYES: PERRLA/EOMI, conjunctivae clear. NOSE: Normal no drainage EARS:TMS clear with good light reflex. THROAT: Pharynx clear, no exudate. NECK: Supple. No adenopathy, no masses. RESPIRATORY: Airway patent, respirations nonlabored. Clear to auscultation bilaterally, no rales, rhonchi, wheezing. CARDIOVASCULAR: Regular rate and rhythm without murmurs rubs or gallops. ABDOMINAL: Soft, nontender, nondistended, normal bowel sounds MUSCULOSKELETAL: Right wrist deformity, neurovascularly intact, tenderness to right posterior hip NEURO: Alert. Cranial nerves II through XII intact. Good gait. Good coordination SKIN: Warm, dry. Normal Color Course Vital Signs Vital signs: Vital Signs Temperature 97.4 F L 03/15/25 10:22 Pulse Rate 78 03/15/25 10:22 Respiratory Rate 17 03/15/25 10:22 Blood Pressure 105/64 03/15/25 10:22 Pulse Oximetry 95 03/15/25 10:22 Temperature 97.4 F L 03/15/25 10:22 Pulse Rate 78 03/15/25 10:22 Respiratory Rate 17 03/15/25 10:22 Blood Pressure 105/64 03/15/25 10:22 Pulse Oximetry 95 03/15/25 10:22 Medical Decision Making MDM Narrative Medical decision making narrative: 84-year-old female presented to the emergency department for evaluation for right wrist pain after having a ground level fall. Wrist does show evidence of a distal radius fracture. No significant angulation or need for reduction. Patient was placed in a volar splint and did feel comfortable in the splint. Hip x-ray shows no acute fracture dislocation. Patient did family up to the results of the workup plan for discharge home. Patient will have close outpatient follow-up with Orthopedics. Differential Diagnosis Differential Diagnosis: Wrist fracture, wrist dislocation, hip fracture hip strain, hip contusion, subdural hematoma, subarachnoid hemorrhage Vital Signs Vital Signs: Vital Signs Temperature 97.4 F L 03/15/25 10:22 Pulse Rate 78 03/15/25 10:22 Respiratory Rate 17 03/15/25 10:22 Blood Pressure 105/64 03/15/25 10:22 Pulse Oximetry 95 03/15/25 10:22 Temperature 97.4 F L 03/15/25 10:22 Pulse Rate 78 03/15/25 10:22 Respiratory Rate 17 03/15/25 10:22 Blood Pressure 105/64 03/15/25 10:22 Pulse Oximetry 95 03/15/25 10:22 Discharge Plan Discharge Clinical Impression: Distal radius fracture, right Patient Disposition: Home Condition: Stable Instructions: Antibiotic Form, Wrist Fracture in Adults (ED), How to Use a Sling (ED), Splint Care (ED) Additional Instructions: Splint care as directed. Taylor as needed for pain control. Have close follow-up with Orthopedics. If you have any worsening symptoms then please call or return to the emergency department. Patient Language: Portuguese Prescriptions: New hydrocodone-acetaminophen 5-325 mg tablet 1 tablet PO Q12H PRN (Reason: pain) Qty: 14 0RF No Action aspirin 325 mg tablet 325 mg PO DAILY albuterol sulfate 90 mcg/actuation HFA aerosol inhaler 1 puff inhalation Q4-6H PRN (Reason: shortness of breath or wheezing) Qty: 8.5 0RF (DME) blood sugar diagnostic Strip See Rx Instructions .ROUTE .MEDSUPPLY Qty: 100 3RF Rx Instructions: test blood sugar daily gabapentin 100 mg capsule 100 mg PO BID PRN (Reason: neuropathy) Qty: 60 0RF levothyroxine 125 mcg tablet 125 mcg PO DAILY Qty: 90 2RF amlodipine 5 mg tablet 5 mg PO DAILY Qty: 90 2RF simvastatin 20 mg tablet See Rx Instructions .ROUTE .COMPLEX Qty: 90 2RF Dose Instruction: TAKE 1 TABLET BY MOUTH EVERY DAY Rx Instructions: TAKE 1 TABLET BY MOUTH EVERY DAY metformin 1,000 mg tablet See Rx Instructions .ROUTE .COMPLEX Qty: 180 2RF Dose Instruction: TAKE 1 TABLET BY MOUTH TWICE A DAY WITH MORNING AND EVENING MEALS Rx Instructions: TAKE 1 TABLET BY MOUTH TWICE A DAY WITH MORNING AND EVENING MEALS lisinopril 40 mg tablet See Rx Instructions .ROUTE .COMPLEX Qty: 90 2RF Dose Instruction: TAKE ONE TABLET BY MOUTH ONCE DAILY Rx Instructions: TAKE ONE TABLET BY MOUTH ONCE DAILY glimepiride 1 mg tablet 1 mg PO DAILY Qty: 90 1RF hydrocodone-acetaminophen 5-325 mg tablet 1 tablet PO Q12H PRN (Reason: pain) Qty: 60 0RF Follow-up/Referrals: Darren Hernández MD [Primary Care Provider, Family Practice] Keyshawn Amador MD [Physician, Orthopedics]
[2025-03-15] MEDS: HYDROcodone/acetaminophen (*CRX) 5-325 MG TABLET 1 TAB PO (12:26)
--- NOTE | 2025-03-15 13:31 | PC.NURSE ---
pt urinated on himself and floor, pt was offered to be changed and cleaned up. pt denied.
== END 2025-03-15 15:04 | disposition home or self-care (01) ==
PROVIDERS: Emergency Provider Emergency Medicine; PCP Family Medicine
DX: S52.501A Unspecified fracture of the lower end of right radius, initial encounter for closed fracture (principal); I35.1 Nonrheumatic aortic (valve) insufficiency; I10 Essential (primary) hypertension; I65.23 Occlusion and stenosis of bilateral carotid arteries; E78.5 Hyperlipidemia, unspecified; E03.9 Hypothyroidism, unspecified; E11.40 Type 2 diabetes mellitus with diabetic neuropathy, unspecified; F17.210 Nicotine dependence, cigarettes, uncomplicated; Z96.643 Presence of artificial hip joint, bilateral; Z79.82 Long term (current) use of aspirin; Z79.84 Long term (current) use of oral hypoglycemic drugs; Z79.899 Other long term (current) drug therapy; W01.0XXA Fall on same level from slipping, tripping and stumbling without subsequent striking against object, initial encounter
CPT/HCPCS: 29125; 73110; 73502; 99284; A4565; A9270

== ENCOUNTER 2025-05-24 09:55 | Outpatient (CLI) | payer OTHER, SELFPAY ==
--- NOTE | ~2025-05-24 | CT_ITS ---
EXAMINATION: CT diagnostic chest wo con DATE: 05/24/2025 10:39 INDICATION: Solitary pulmonary nodule. TECHNIQUE: Computed tomography (CT) of the chest was performed without intravenous contrast. The dose-length product was 138.58 mGy-cm. Automated exposure control and iterative reconstruction technique were employed. COMPARISON: CT dated 10/03/2024 FINDINGS: Heart size normal. No thoracic lymphadenopathy. There is atherosclerosis of the aorta and coronary arteries. No significant pleural or pericardial effusion. Atrophic right kidney. 6 mm nonobstructing right renal stone. There is atherosclerosis of the abdominal aorta. There are calcified left pleural plaques, possibly secondary to prior asbestos exposure or infection. No endobronchial lesions. No focal airspace consolidation. Stable 8 mm left lower lobe nodule. IMPRESSION: 1. Stable 8 mm left lower lobe nodule, likely benign. Recommend follow-up low dose CT chest in 12 months. 2: Nonobstructing right nephrolithiasis. Atrophic right kidney. Reviewed, dictated and finalized at location O. 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 Stable 8 mm left lower lobe nodule, likely benign. Recommend follow-up low d ose CT chest in 12 months. 2: Nonobstructing right nephrolithiasis. Atrophic right kidney.
== END 2025-05-24 09:56 | disposition home or self-care (01) ==
PROVIDERS: PCP Family Medicine; Visit Provider Physician Assistant
DX: R91.1 Solitary pulmonary nodule (principal); N20.0 Calculus of kidney; N26.1 Atrophy of kidney (terminal)
CPT/HCPCS: 71250; 84156